=== PATIENT | male | born 1975 | race Caucasian/White ===

== ENCOUNTER 2017-06-28 16:56 | Emergency (ER) | payer BC ==
[2017-06-28] MEDS ORDERED: Famotidine IV* 10 MG/ML 2 ML (20 mg) IV SLOW PU ONE (17:02)
[2017-06-28] MEDS ORDERED: methylPREDNISolone 125 MG* 2 ML VIAL IV ONE (17:02)
[2017-06-28 18:43] VITALS: BP 151/98
--- NOTE | 2017-06-28 18:49 | ED ---
Za Coronado Rebecca, scribed for Pauline Reyes MD on 06/28/17 at 1715 . Allergic Reaction/Systemic - HPI Summary HPI Summary: Pt is a 41 y/o M who presents to ED c/o allergic reaction s/p bee stings. At approximately 1600 today (1 hour [employer]) he was stung by two bees on the lower back. Immediately he felt "flushed" then started experiencing diffuse erythematous hives and swelling to the face. Additionally notes throat pain with swallowing. Took 50 mg Benadryl [employer] and sx have improved since onset. Sx aggravated by nothing, alleviated by Benadryl. Denies SOB and throat tightening. Was stung by a bee on the R finger last week that was swollen down to the wrist and stayed swollen for about 1 week. - History of Current Complaint Chief Complaint: EDAllergicReaction Time Seen by Provider: 06/28/17 17:01 Hx Obtained From: Patient Onset/Duration: Sudden Onset, Started hours ago, Still Present Timing: Constant Severity Currently: None Pain Intensity: 0 Pain Scale Used: 0-10 Numeric Character: Swelling - Facial, Hives Aggravating Factor(s): Nothing - Allergies/Home Medications Allergies/Adverse Reactions: Allergies Allergy/AdvReac Type Severity Reaction Status Date / Time No Known Allergies Allergy Verified 06/28/17 17:10 PMH/Surg Hx/FS Hx/Imm Hx Endocrine/Hematology History: Denies: Hx Diabetes Cardiovascular History: Reports: Hx Hypertension Infectious Disease History: Denies: Traveled Outside the [place] in Last 30 Days - Family History Known Family History: Positive: Cardiac Disease - Social History Lives: With Family - Partner Alcohol Use: Daily Hx Substance Use: No Substance Use Type: Reports: None Hx Tobacco Use: No Smoking Status (MU): Never Smoked Tobacco Review of Systems Positive: Other - "flushed" Positive: Sore Throat - with swallowing, Other - NEGATIVE: throat tightening Negative: Shortness Of Breath Positive: Other - Diffuse erythematous hives and facial swelling All Other Systems Reviewed And Are Negative: Yes Physical Exam - Summary Physical Exam Summary: General: Well appearing, no pain distress Skin: Warm, Dry, Erythematous appearing, diffuse hives Eyes: EOMI, TAYLOR ENT: Pharynx normal, TMs normal, Voice normal Neck: Supple, nontender Respiratory: CTA, breath sounds present, no rhonchi, no wheezes, no rales, no stridor Cardiovascular: RRR, no murmur, no rub, no gallop Abdomen: Soft, nontender, Non-distended, no guarding, no rebound Bowel: Present Musculoskeletal: FILIPPO, No edema Neuro: Sensory/motor intact, A&Ox3, CN intact 2-12 Psych: Affect/mood appropriate Triage Information Reviewed: Yes Vital Signs On Initial Exam: Initial Vitals Temp Pulse Resp BP Pulse Ox 98.9 F 96 20 150/85 99 06/28/17 16:57 06/28/17 16:57 06/28/17 16:57 06/28/17 16:57 06/28/17 16:57 Vital Signs Reviewed: Yes Diagnostics - Vital Signs Vital Signs Temp Pulse Resp BP Pulse Ox 06/28/17 16:57 98.9 F 96 20 150/85 99 - Laboratory Lab Statement: Any lab studies that have been ordered have been reviewed, and results considered in the medical decision making process. - EKG 1737 Cardiac Rate: NL - 68 bpm EKG Rhythm: Sinus Rhythm EKG Interpretation: No ST elevation Re-Evaluation - Re-Evaluation First Eval Re-Evaluation Time: 17:51 Change: Improved Comment: Pt is feeling better. Second Eval Re-Evaluation Time: 18:43 Comment: Discussed D/C plan with the pt. Allergic Reaction Course/Dx - Course Course Of Treatment: pt stung by 2 bees feeling better after taking 50 mg of benadryl at home at the time of the sting and then came in an hour later due to discomfort in throat with swallowing water. Pt is feeling much better with pepcid and solumedrol ok to go home a few doses of steroids were sent to pharmacy - Diagnoses Provider Diagnoses: Allergic reaction Discharge - Discharge Plan Condition: Stable Disposition: HOME Prescriptions: predniSONE TAB* [Deltasone TAB*] 50 mg PO DAILY #2 tab Patient Education Materials: General Allergic Reaction (ED) Referrals: [facility] [Outside] - 3 Days The documentation as recorded by the Za spears Rebecca accurately reflects the service I personally performed and the decisions made by me, Pauline Reyes MD.
== END 2017-06-28 18:50 | disposition home or self-care (01) ==
LOC: ED 16:56
DX: T78.40XA Allergy, unspecified, initial encounter (principal); T63.441A Toxic effect of venom of bees, accidental (unintentional), initial encounter; J02.9 Acute pharyngitis, unspecified; X58.XXXA Exposure to other specified factors, initial encounter; Y92.9 Unspecified place or not applicable
CPT/HCPCS: 93005; 99282; J2930